=== PATIENT | female | born 1960 | race Caucasian/White ===

== ENCOUNTER → 2017-10-13 13:35 | Outpatient (CLI) | payer OTHER, SELFPAY ==
[2017-10-13 15:03] LABS: Hematocrit 41.5 % (37-47); Hemoglobin 14.2 g/dl (12.0-15.0); Mean Corp Hgb Conc 34.2 g/gl (32-36); Mean Corpuscular Hgb 31.8 pg (27.0-32.0); Mean Platelet Vol. 9.8 fl (6.2-12.0); Platelet Count 266 K/mm3 (150-450); RBC Distribution Width CV 13.3 % (11.6-14.6); Red Blood Count 4.46 M/mm3 (4.2-5.4); White Blood Count 6.1 K/mm3 (4.4-11.0)
[2017-10-13 15:04] LABS: Scan Indicated on CBC? Y/N NO
[2017-10-13 15:08] LABS: Protein, Urine (Random) 12.8 mg/dL (<11.9); Protein:Creat Ratio 107 mg/g CRE (0-200)
[2017-10-13 15:10] LABS: Albumin, Serum 3.9 g/dL (3.2-5.0); BUN 18 mg/dL (7-18); BUN/Creat Ratio 12.2 RATIO (10-20); Calcium,Total 9.6 mg/dL (8.5-10.1); Chloride 105 mmol/L (98-107); Creatinine, Serum 1.47 mg/dL (0.55-1.02); EST Glomerular Filtration Rate 39 mL/min (>60); Est Glom Filt Rate - Afr Amer 47 mL/min (>60); Glucose 94 mg/dL (74-106); Phosphorus 3.2 mg/dL (2.5-4.9); Potassium 3.9 mmol/L (3.5-5.1); Sodium Level 141 mmol/L (136-145)
== END ==
PROVIDERS: Family Provider Family Medicine Geriatric Medicine; PCP Family Medicine Geriatric Medicine; Visit Provider Internal Medicine Nephrology
DX: N18.3 Chronic kidney disease, stage 3 (moderate) (principal)
CPT/HCPCS: 36415; 80069; 82570; 84156; 85027

== ENCOUNTER → 2018-06-01 11:53 | Outpatient (CLI) | payer OTHER, SELFPAY ==
[2018-06-01 10:43] VITALS: BMI 23.3
[2018-06-01 13:12] LABS: T4 Total, Thyroxin 11.7 ug/dL (4.8-13.9); Thyroid Stim Hormone (TSH) 1.11 uIU/mL (0.358-3.74)
--- OUTSIDE RECORDS SUMMARY | 2018-07-27 15:15 | XMS RPT_ITS ---
:1960 Author Organization [facility] Support Name Relationship Address Phone [employer] Unavailable [address] + [place] [address] ARTURO EWING Unavailable [address] + [place] [address] COUCH CRYST[employer] Unavailable [address] + [place] [address] [employer] Unavailable [address] + [place] [address] ARTURO EWING Unavailable [address] + [place] [address] [employer] CRYST[employer] Unavailable [address] + [place] [address] [employer] Unavailable [address] + [place] [address] ARTURO EWING Unavailable [address] + [place] [address] COUCH CRYSTAL Unavailable . + [place] [address] [employer] Unavailable [address] + [place] [address] ARTURO EWING Unavailable [address] + [place] [address] [employer] Unavailable [address] + [place] [address] ARTURO EWING Unavailable [address] + [place] [address] [employer] Unavailable [address] + [place] [address] ARTURO EWING Unavailable [address] [phone] [place] [address] [employer] Unavailable [address] + [place] [address] ARTURO EWING Unavailable [address] [phone] [place] [address] [employer] Unavailable [address] + [place] [address] ARTURO EWING Unavailable [address] [phone] [place] [address] Care Team Providers Name Role Phone Twyla Castañeda Attending Unavailable Warner, Tyler Chi Primary Care Unavailable Warner, Tyler Chi Attending Unavailable Warner, Tyler Chi Primary Care Unavailable Warner, Tyler Chi Attending Unavailable Warner, Tyler Chi Primary Care Unavailable Twyla Castañeda Attending Unavailable Warner, Tyler Chi Primary Care Unavailable Vincenzo, Pramod Attending Unavailable Vincenzo, [place] Referring Unavailable Warner, Tyler Chi Primary Care Unavailable Vincenzo, Pramod Consulting Unavailable Vincenzo, Pramod Attending Unavailable Warner, Tyler Chi Referring Unavailable Warner, Tyler Chi Primary Care Unavailable Vincenzo, [place] Attending Unavailable Vincenzo, [place] Attending Unavailable Vincenzo, [place] Referring Unavailable Warner, Tyler Chi Primary Care Unavailable Zackary Datinder B Admitting Unavailable Zackary, Datinder B Attending Unavailable Zackary, Datinder B Primary Care Unavailable PROBLEMS PROBLEMS DATE TYPE CONDITION / CODE ATTENDING STATUS SOURCE 06/15/2018 Unknown Z98.890 - Other Vincenzo, Pramod Active [place] specified Community postprocedural Hospital states / Repository Z98.890(ICD-10) 06/01/2018 Unknown E03.9 - Vinc[place], [place] Active [place] Hypothyroidism, Community unspecified / Hospital E03.9(ICD-10) Repository 10/13/2017 Unknown N18.3 - Chronic Twyla Castañeda Active [place] kidney disease, Community stage 3 (moderate) / Hospital N18.3(ICD-10) Repository PROCEDURES PROCEDURES No Procedure Records FoundRESULTS RESULTS ECHOCARDIOGRAM COMPLETE Observed: 06/15/2018 Status: F Source: [place] 5:46 PM [facility] REPOSITORY [facility] Cardiovascular Services [address] [place] [address] Echo Complete 06/15/18 1258 MR#: [id number] Acct: [id number] Name: RACHEL EWING Rep #: [id number] : 1960 58 From: Pramod Loya MD Attending Dr: Pramod Loya MD Status: REG CLI Ordering Dr: Pramod Loya MD Date: 06/15/18 Location: [facility] Sex: F C Admitted: Reason For Study: Mitral valve repair Procedure This was a 2D Doppler, Color Flow transthoracic echocardiogram. Exam performed in department. Left Ventricle Normal LV size. Mild concentric left ventricular hypertrophy. Left ventricular systolic function is lower limits of normal. The estimated ejection fraction is 50 %. Stage 1 diastolic dysfunction. Salmon : Hypokinetic. Right Ventricle Normal RV size. Normal systolic function. Atria Normal left atrium. Normal right atrium. Mitral Valve Mild-Moderate (1-2+) eccentric mitral valve insufficiency. An annuloplasty ring is noted in the mitral position. Status post mitral valve repair. Tricuspid Valve Normal tricuspid valve. Mild (1+) tricuspid valve insufficiency. Aortic Valve Trisinus/trileaflet aortic valve. Pulmonic Valve Normal pulmonic valve. Great Vessels Normal aortic root. The pulmonary artery is normal size. Normal inferior vena cava. Pericardium/Pleural No pericardial effusion. MMode/2D Measurements AND Calculations LVIDd: 4.4 cm IVSd: 1.4 cm Ao root diam: 2.9 cm LVIDs: 2.8 cm LVPWd: 1.2 cm RVDd: 3.2 cm FS: 35.1 % LAV(MOD-bp): 91.5 ml EDV(MOD-sp4): 86.9 ml EDV(MOD-sp2): 92.6 ml LAV(MOD-bp) Indexed: 52.7 ml/m2 ESV(MOD-sp4): 47.4 ml EF(MOD-sp2): 55.4 % LAV(MOD-sp2): 87.2 ml EF(MOD-sp4): 45.4 % LAV(MOD-sp4): 73.2 ml SV(MOD-sp4): 39.4 ml SV(MOD-sp2): 51.3 ml LA A4 area: 21.1 cm2 LA dimension(2D): 5.2 cm RA A4 area: 13.8 cm2 Doppler Measurements AND Calculations MV E max rodolfo: 98.2 cm/sec MV V2 max: 133.2 cm/sec MV P1/2t max rodolfo: 117.6 cm/sec MV A max rodolfo: 106.9 cm/sec MV max P.1 mmHg MV P1/2t: 89.3 msec MV E/A: 0.92 MV V2 mean: 95.7 cm/sec MV dec slope: 385.7 cm/sec2 MV mean P.9 mmHg MV V2 VTI: 31.2 cm MVA(P1/2t): 2.5 cm2 Ao V2 max: 121.2 cm/sec LV V1 max: 83.6 cm/sec PA V2 max: 67.0 cm/sec Ao max P.9 mmHg LV V1 max P.8 mmHg TR max rodolfo: 233.8 cm/sec TR max P.9 mmHg Interpretation Summary Status post mitral valve repair. Normal LV size. Left ventricular systolic function is lower limits of normal. The estimated ejection fraction is 50 %. Stage 1 diastolic dysfunction. Mild concentric left ventricular hypertrophy. Compared to prior study, there is no significant change. Ordering Physician: Pramod Loya Referring Physician: Tyler Hylton Chi Performed By: Mitzy Cramer RDCS 06/15/181745 Date Pramod Loya MD CC: Pramod Loya MD; Tyler Hylton MD Date Dictated: 06/15/18 1258 Date Transcribed: 06/15/181745 Public Speaker: Signed T4 TOTAL, THYROXIN Collected: 06/01/2018 Status: F Source: [place] 11:56 AM [facility] REPOSITORY TYPE CODE TESTS RESULT OUT OF RANGE REFERENCE UNITS LAB L501.9310 4.8-13.9 ug/dL T4 Normal THYROXIN 11.7 Performed By: #### L501.9310, L501.9520 #### [place] [facility] [address] [place], [address] THYROID STIM HORMONE Collected: 06/01/2018 Status: F Source: [place] (TSH) 11:56 AM [facility] REPOSITORY TYPE CODE TESTS RESULT OUT OF RANGE REFERENCE UNITS LAB L501.9520 0.358-3.74 uIU/mL Normal TSH 1.11 Performed By: #### L501.9310, L501.9520 #### [place] [facility] [address] [place], [address] CARDIOLOGY VISIT Observed: 06/01/2018 Status: F Source: [place] REPORT 11:13 AM [facility] REPOSITORY [facility] [address] [place] [address] OFFICE VISIT Date of Service: 06/01/18 MR#: [id number] Acct: [id number] Name: RACHEL EWING Rep #: [id number] : 1960 Provider: Pramod Loya MD Age/Sex: 58/F Location: [facility] Status: Signed HPI HPI Chief Complaint: Follow up Details: RACHEL EWING, is a 58 F who presents to the office today for a follow-up visit. She is a lady with a history of posterior mitral valve leaflet [id number] who underwent a quadrangular resection of the P2 segment and annuloplasty with placement of a 32 mm Minerva Barlow band. She has been doing quite well she denies any chest pain or shortness of breath or paroxysmal nocturnal dyspnea or pedal edema. She is concerned about the fact that her stamina is not back to where she thinks it needs to be. She has not had any dizziness or diaphoresis no near syncope or syncope. Her physical exam today demonstrates clear lung pritchett regular rate and rhythm and no pedal edema. 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 Is patient in pain?: No Allergies prednisone Adverse Reaction (Verified 06/01/18 10:43) Nausea/Vom/Diarrhea Medications Aspirin 81 mg PO DAILY 07/09/16 [History Confirmed 06/01/18] levothyroxine 88 mcg capsule 88 mcg PO DAILY 06/01/18 [History Confirmed 06/01/18] multivitamin capsule 1 cap PO DAILY 06/01/18 [History Confirmed 06/01/18] [facility] Medical History Hypothyroidism (Chronic) CHF (congestive heart failure) (Chronic) Mitral regurgitation due to cusp prolapse (Chronic) Atrial fibrillation (Chronic) Surgical History History of thoracentesis (Resolved) H/O mitral valve repair (Resolved) Hx of tonsillectomy (Resolved) S/P percutaneous endoscopic gastrostomy (PEG) tube placement (Resolved) Family History Father CVA (cerebral vascular accident) Social History Smoking Status: Never smoker ROS Const Const: Negative for fatigue, weakness, night sweats, excessive sweating, frequent falls, headache(s) or daytime sleepiness Eyes Eyes: Negative for loss of peripheral vision, transient loss of vision, blind spots, double vision or blurry vision ENT ENT: Negative for headache(s), dizziness, balance problems, Nosebleed/epistaxis, tongue swelling or lip swelling Cardio Chest Pain: No Palpitations: No Edema: None Muscle aches with walking: None Resp Respiratory: Negative for SOB at rest, SOB orthopnea\SOB lying down, Cough, paroxysmal nocturnal dyspnea or SOB with activity GI GI: Negative nausea, vomiting, heartburn, black,tarry stools or bright, red blood in stools : Negative for hematuria Musc Musc: Negative for balance problems, muscle aches/ myalgia, muscle weakness or joint pain Skin Skin: Negative non-healing lesions, unusual bruising or rash Neuro Neuro: Negative for weakness, frequent falls, headache(s), double vision, dizziness, lightheadedness, orthostatic symptoms, blurry vision or lack of coordination Azeem Hematologic/Lymphatic: Negative for easy bruising or easy bleeding Endo Endo: Negative for fatigue, excessive sweating, cold intolerance, heat intolerance, increased thirst/drinking or hair loss Psych Psych: Negative for anxiety or depression Allergy Allergy/Immunology: Negative for throat swelling, Negative for tongue swelling, Negative for hives, Negative for rash, Negative for lip swelling Cardiology Exam Const Appearance: cooperative, healthy appearing, well developed, well groomed and no acute distress Nutritional Appearance: well nourished and average body habitus Orientation: alert, awake and oriented x3 Head Head: normal to inspection, normocephalic and atraumatic Ears: hearing grossly normal bilaterally and external ears normal Nose: external nose normal, nasal mucous membranes and turbinates normal, nares normal, septum normal, no nasal discharge Face and Sinus: face symmetric Mouth: oral mucosae normal, tongue normal, oropharynx normal and moist mucous membranes Teeth and gingiva: dentition normal Throat: posterior oropharynx normal, tonsils normal and uvula midline Eyes General: appearance normal, both eyes and all related structures Eyelids: eyelids normal Conjunctivae: conjunctivae normal Pupils: PERRL, normal by confrontation and accommodation normal EOM: EOM intact bilaterally Neck Neck: normal visual inspection, trachea midline and no JVD JVD: +5 Carotids: normal carotid upstroke and bounding pulses Chest Chest inspection: normal inspection of the chest, symmetric chest movement and normal respiratory effort Auscultation: Bilateral: Clear to Auscultation Cardio Palpation: normal PMI Rate: regular rate Rhythm: regular rhythm Heart sounds: S1 normal, S2 normal and normal, physiologic split S2; negative rub, gallop or murmur GI GI: normal to inspection, soft, no hepatosplenomegaly and bowel sounds present Neuro General: alert, awake, oriented x3, no focal sensory deficit, gait normal and moves all extremities Skin Skin: no rashes or lesions noted Extremities Pulses: Normal: Right Femoral Pulse, Left Femoral Pulse, Right Dorsalis Pedis Pulse, Left Dorsalis Pedis Pulse, Right Posterior Tibial Pulse, Left Posterior Tibial Pulse, Right Radial Pulse, Left Radial Pulse Lower Extremity Edema: None: Bilateral Musculoskel Musculoskeletal: No joint tenderness Psych Psychological: normal affect Assessment AND Plan 1. H/O mitral valve repair Z98.890 05/24/16 MVR with quadrangle resection P2, annuloplasty #32 mm Minerva-Barlow band Plan She is status post mitral valve repair. I would commend that we obtain a repeat echocardiogram to reassess her left ventricular function. Depending on the findings further recommendations will be made. Clinically however I think that she is doing very well. Orders Orders: 2. Hypothyroidism E03.9 Plan She does have a history of hypothyroidism previously on supplementation I would recommend that we obtain a TSH as well as T4 to make sure that her dosage is appropriate. As you know she has complained of fatigue and I wonder whether this may be part of the reason. 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) Coding Level of Care Code Off vis,est,level 4 Diagnoses H/O mitral valve repair Z98.890 Hypothyroidism E03.9 Coding Level of Care Code Off vis,est,level 4 Diagnoses H/O mitral valve repair Z98.890 Hypothyroidism E03.9 06/01/18 1113 <Electronically signed by Pramod Loya MD> Date Pramod Loya MD Cosigner Signature: Date (if applicable) CC: Tyler Hylton MD CBC W/ AUTO DIFF Collected: 05/10/2018 Status: F Source: [facility] 10:19 AM [facility] REPOSITORY TYPE CODE TESTS RESULT OUT OF RANGE REFERENCE UNITS LAB 67418169(L 3.6-11.0 E3/mcL OINC) Normal WBC 4.9 LAB 10343238(L 3.90-5.40 E6/mcL OINC) Normal RBC 4.15 LAB 31485573(L 12.0-16.0 G/DL OINC) Normal Hgb 13.4 LAB 83638109(L 36.0-48.0 % OINC) Normal Hct 39.6 LAB 70892874(L 11.5-14.5 % OINC) Normal RDW 13.1 LAB 88719653(L 27.0-31.0 pg OINC) High MCH 32.4 LAB 01833746(L 33.0-37.0 G/DL OINC) Normal MCHC 33.9 LAB 47116562(L 78.0-100.0 fL OINC) Normal MCV 95.6 LAB 41732419(L 7.4-11.0 fL OINC) Normal MPV 8.5 LAB 86404106(L 130-400 E3/mcL OINC) Normal Platelet 228 Performed By: #### [id number] #### [place] [id number] AUTO DIFF Collected: 05/10/2018 Status: F Source: [facility] 10:19 AM [facility] REPOSITORY Order Comment: Order Added by Discern Expert. TYPE CODE TESTS RESULT OUT OF RANGE REFERENCE UNITS LAB 23175156(L 37.0-75.0 % OINC) Normal Neutro Auto 65.3 LAB 19990324(L 20.0-55.0 % OINC) Normal Lymph Auto 22.9 LAB 41352594(L 0.0-10.0 % OINC) Normal [place] Auto 7.5 LAB 74946999(L 0.0-11.0 % OINC) Normal Eos Auto 3.0 LAB 75831452(L 0.0-2.0 % OINC) Normal Basophil Auto 1.3 LAB 77407326(L 1.4-6.5 E3/mcL OINC) Normal Neutro 3.2 Absolute LAB 08776775(L 1.2-3.4 E3/mcL OINC) Low Lymph Absolute 1.1 LAB 78859432(L 0.0-0.7 E3/mcL OINC) Normal [place] Absolute 0.4 LAB 75905189(L 0.0-0.7 E3/mcL OINC) Normal Eos Absolute 0.1 LAB 97850201(L 0.0-0.2 E3/mcL OINC) Normal Basophil 0.1 Absolute Performed By: #### [id number] #### OCTAVIOJasmina JohansenAydenjackson [address] [place] [address] RENAL PANEL Collected: 05/10/2018 Status: F Source: [facility] 10:19 AM [facility] REPOSITORY TYPE CODE TESTS RESULT OUT OF RANGE REFERENCE UNITS LAB 36501544(L 10-20 mEq/L OINC) Low AGAP 8 LAB 06421296(L 3.4-5.0 gm/dL OINC) Albumin Normal Lvl 4.2 LAB 03422962(L 8.6-10.3 mg/dL OINC) Calcium Normal Lvl 9.7 LAB 79690053(L 21.0-32.0 mEq/L OINC) CO2 Normal 29.0 LAB 46341520(L 98-107 mEq/L OINC) Chloride Normal 103 LAB 5495183(LO 0.5-1.1 mg/dL INC) High Creatinine 1.3 LAB 63728436(L 70-99 mg/dL OINC) Glucose Normal Lvl 85 LAB 12403399(L 2.5-4.9 mg/dL OINC) Normal Phosphorus 3.3 LAB 90134383(L 6-23 mg/dL OINC) BUN Normal 23 LAB 24988981(L 136-145 mEq/L OINC) Sodium Normal Lvl 136 LAB 65962965(L 3.5-5.3 mEq/L OINC) Normal Potassium Lvl 4.3 LAB 44182505(L 5.4-30.0 ratio OINC) Normal BUN/Creat Ratio 17.7 Performed By: #### [id number] #### [place] [employer] [address] [place] [address] EGFR Collected: 05/10/2018 Status: F Source: [facility] 10:19 AM [facility] REPOSITORY Order Comment: Order added by Discern Expert. TYPE CODE TESTS RESULT OUT OF RANGE REFERENCE UNITS LAB 47647857(LO mL/min/1.73 INC) m2 Normal eGFR 43 LAB 85839196(LO mL/min/1.73 INC) m2 Normal eGFR AA 52 Performed By: #### [id number] #### [place] [employer] [address] [place] [address] U CREATININE Collected: 05/10/2018 Status: F Source: [facility] 10:19 AM [facility] REPOSITORY TYPE CODE TESTS RESULT OUT OF RANGE REFERENCE UNITS LAB 19247918(L 20-300 mg/dL OINC) U Normal Creatinine 46 Performed By: #### [id number] #### [place] [employer] [address] [place] [address] U PROTEIN Collected: 05/10/2018 Status: F Source: [facility] 10:19 AM [facility] REPOSITORY TYPE CODE TESTS RESULT OUT OF RANGE REFERENCE UNITS LAB 77409399(LO 1-14 mg/dL INC) Normal Ur Total <4 Protein Performed By: #### [id number] #### [place] [employer] [address] [place] [address] CBC-COMPLETE BLOOD CNT Collected: 10/13/2017 Status: F Source: [place] NO DIFF 1:38 PM [facility] REPOSITORY TYPE CODE TESTS RESULT OUT OF RANGE REFERENCE UNITS LAB L100.1000 4.4-11.0 K/mm3 Normal WBC 6.1 LAB L100.1200 4.2-5.4 M/mm3 Normal RBC 4.46 LAB L100.1300 12.0-15.0 g/dl Normal HGB 14.2 LAB L100.1400 37-47 % Normal HCT 41.5 LAB L100.1500 81-99 fL Normal MCV 93.0 LAB L100.1600 27.0-32.0 pg Normal MCH 31.8 LAB L100.1700 32-36 g/gl Normal MCHC 34.2 LAB L100.1810 11.6-14.6 % Normal RDW CV 13.3 LAB L100.1820 35.1-43.9 fl High RDW SD 44.0 LAB L100.1900 150-450 K/mm3 Normal PLT 266 LAB L100.2000 6.2-12.0 fl Normal MPV 9.8 Performed By: #### L100.0500 #### [facility] [address] [place], [place], [address] PROTEIN+CREATININE Collected: Status: F Source: [place] RUGGIEROURINE 10/13/2017 1:38 PM [facility] REPOSITORY TYPE CODE TESTS RESULT OUT OF RANGE REFERENCE UNITS LAB L501.1200 NO RANGE EST. mg/dL Normal UR CREAT 120.00 LAB L501.1930 <11.9 mg/dL High 12.8 PROTEIN,UR.R AN. LAB L501.1940 0-200 mg/g CRE Normal PROT:CRE 107 RATIO Performed By: #### L501.0900 #### [facility] [address] [place], [place], [address] RENAL PROFILE Collected: 10/13/2017 Status: F Source: [place] 1:38 PM [facility] REPOSITORY TYPE CODE TESTS RESULT OUT OF RANGE REFERENCE UNITS LAB L501.0100 74-106 mg/dL Normal GLU 94 Result Comment: Please note revised GLUCOSE reference range effective 2017. LAB L501.1000 7-18 mg/dL Normal BUN 18 LAB L501.1100 0.55-1.02 mg/dL High CREAT,SERUM 1.47 Result Comment: The validity of the calculated GFR AND GFRAA in patients over 70 years has not been determined. Clinical correlation is essential. LAB L501.1110 >60 mL/min Low EST GFR 39 Result Comment: Non- GFR Calc LAB L501.1115 >60 mL/min Low EST GFR - AA 47 Result Comment: GFR Calc LAB L501.1300 10-20 RATIO Normal BUN/CRE 12.2 LAB L501.1800 3.2-5.0 g/dL Normal ALB 3.9 LAB L501.2200 8.5-10.1 mg/dL CA Normal 9.6 LAB L501.2300 2.5-4.9 mg/dL Normal PHOS 3.2 LAB L501.5300 136-145 mmol/L NA Normal 141 LAB L501.5600 3.5-5.1 mmol/L K Normal 3.9 LAB L501.5900 98-107 mmol/L CL Normal 105 LAB L501.6100 21.0-32.0 mmol/L Normal CO2 29.0 Performed By: #### L500.3600 #### [facility] [address] [place], [place], [address] CBC W/DIFF, AUTOMATED Collected: 07/25/2017 Status: F Source: [place] 11:05 AM [facility] REPOSITORY TYPE CODE TESTS RESULT OUT OF RANGE REFERENCE UNITS LAB L100.1000 4.4-11.0 K/mm3 Normal WBC 5.5 LAB L100.1200 4.2-5.4 M/mm3 Normal RBC 4.53 LAB L100.1300 12.0-15.0 g/dl Normal HGB 13.8 LAB L100.1400 37-47 % Normal HCT 42.8 LAB L100.1500 81-99 fL Normal MCV 94.5 LAB L100.1600 27.0-32.0 pg Normal MCH 30.5 LAB L100.1700 32-36 g/gl Normal MCHC 32.2 LAB L100.1810 11.6-14.6 % Normal RDW CV 12.8 LAB L100.1820 35.1-43.9 fl High RDW SD 44.2 LAB L100.1900 150-450 K/mm3 Normal PLT 254 LAB L100.2000 6.2-12.0 fl Normal MPV 10.4 LAB L100.2100 47-70 % Normal NEUT% 63.4 LAB L100.2200 19-41 % Normal LY% 23.0 LAB L100.2300 0-10 % Normal MONO% 6.3 LAB L100.2400 0-5 % Normal EO% 4.9 LAB L100.2500 0-1 % High BASO% 2.2 LAB L100.2550 0.0-0.9 % Normal IM GRAN % 0.200 Result Comment: IG% - Immature Granulocytes (promyelocytes, myelocytes and metamyelocytes) > 1% indicates that a LEFT SHIFT is Present. LAB L100.2620 2.0-7.7 X10 3/uL Normal Absolute Neut 3.5 LAB L100.2720 0.83-4.51 X10 3/ul Normal Absolute Lymph 1.27 Performed By: #### L100.0100 #### [facility] [address] [place], [place], [address] VITAMIN D,25 HYDROXY Collected: 07/25/2017 Status: F Source: [place] 11:05 [facility] TYPE CODE TESTS RESULT OUT OF RANGE REFERENCE UNITS LAB L506.1000 ng/mL Normal Vitamin D 23.1 25-OH Result Comment: Vitamin D 25(OH) Status Range Deficiency <20 ng/mL (50nmol/L) Insuffciency 20 - 30 ng/mL (50 - 75 nmol/L) Sufficiency 30 - 100 ng/mL (75 - 250 nmol/L) Toxicity >100 ng/mL (>250 nmol/L) Performed By: #### L506.1000 #### [facility] [address] [place], [address] COMPREHENSIVE METABOLIC Collected: 07/25/2017 Status: F Source: [facility] 11:05 AM [facility] REPOSITORY TYPE CODE TESTS RESULT OUT OF RANGE REFERENCE UNITS LAB L501.0100 70-110 mg/dL Normal GLU 79 LAB L501.1000 7-18 mg/dL High BUN 19 LAB L501.1100 0.55-1.02 mg/dL High 1.36 CREAT,SERUM Result Comment: The validity of the calculated GFR AND GFRAA in patients over 70 years has not been determined. Clinical correlation is essential. LAB L501.1110 >60 mL/min Low EST GFR 42 Result Comment: Non- GFR Calc LAB L501.1115 >60 mL/min Low EST GFR - AA 51 Result Comment: GFR Calc LAB L501.1300 10-20 RATIO Normal BUN/CRE 14.0 LAB L501.1500 6.4-8.2 g/dL T Normal PROT 7.5 LAB L501.1800 3.4-5.0 g/dL Normal ALB 4.0 Result Comment: Please note revised Albumin AND Globulin reference range effective 2017. LAB L501.1950 2.2-4.2 g/dL Normal GLOB 3.5 LAB L501.2000 0.9-2.4 RATIO Normal A/G 1.1 LAB L501.2200 8.5-10.1 mg/dL Normal CA 9.2 LAB L501.4100 15-37 U/L Normal AST 23 LAB L501.4305 45-117 U/L Normal ALK P 76 LAB L501.4405 12-78 U/L Normal ALT 27 LAB L501.4600 0.20-1.00 mg/dL Normal T BILI 0.50 LAB L501.5300 136-145 mmol/L Normal NA 137 LAB L501.5600 3.5-5.1 mmol/L Normal K 4.6 LAB L501.5900 98-107 mmol/L Normal CL 101 LAB L501.6100 21.0-32.0 mmol/L Normal CO2 28.0 LAB L501.6200 5-15 Normal GAP 8 Performed By: #### L500.4050, L501.9520 #### [facility] [address] [place], [address] THYROID STIM HORMONE Collected: 07/25/2017 Status: F Source: [place] (TSH) 11:05 AM [facility] REPOSITORY TYPE CODE TESTS RESULT OUT OF RANGE REFERENCE UNITS LAB L501.9520 0.358-3.74 uIU/mL Low TSH 0.06 Performed By: #### L500.4050, L501.9520 #### [facility] [address] [place], [address] HEPATITIS C ANTIBODIES Collected: 07/25/2017 Status: F Source: [place] 11:05 AM [facility] REPOSITORY TYPE CODE TESTS RESULT OUT OF RANGE REFERENCE UNITS LAB L3100.0650 0.0-0.9 s/co ratio Normal HEP C AB 0.1 Result Comment: Negative: < 0.8 Indeterminate: 0.8 - 0.9 Positive: > 0.9 The CDC recommends that a positive HCV antibody result be followed up with a HCV Nucleic Acid Amplification test ([id number]). Performed at: [facility] [id number] [employer] Operator: Hipolito Breen PhD, Phone: [phone] Performed By: #### L3100.0625 #### [facility] (refer to report for specific site) refer to report for address and phone number ALLERGIES ALLERGIES DATE TYPE / CODE NAME / CODE REACTION SEVERITY SOURCE 06/01/2018 Drug prednisone/F Nausea/Vom/Diarr Unknown [facility] Allergy/4160 [id number](RX [facility] 05160(SNOMED NORM) Repository CT) ENCOUNTERS ENCOUNTERS ADMIT/DISCHARGE ACCOUNT NUMBER ADMITTING ENCOUNTER LOCATION SOURCE CLASS 06/15/2018 [id number] Ambulatory BMSBuilding: [place] BMS.CF.[facility] Repository 06/15/2018 [id number] [facility] ding:CVS Repository 06/13/2018 [id number] [facility] ding:LAB.FUT Repository URE 06/01/2018 [id number] Ambulatory [facility] ding:POLAB3 Repository 06/01/2018/06/01/20 [id number] Ambulatory BMSBuilding: Charla 18 BMS.[facility] Repository 05/10/2018/05/10/20 [id number] Zackary, Ambulatory [address] ding:[facility] Repository 05/10/2018 [id number] Ambulatory [address] [place] [address] Repository 10/13/2017 [id number] Ambulatory [facility] ding:POLAB3 Repository 09/05/2017 [id number] Ambulatory [facility] ding:LAB.FUT Repository URE 07/25/2017 [id number] Ambulatory [facility] ding:POLAB3 Repository PAYERS PAYERS ENCOUNTER GUARANTOR PAYER SUBSCRIBER SOURCE 06/15/2018 ARTURO E Primary RACHEL Singletaryoster [id number] TR Insurance:ANTHEMPolic GOUDYDOB: [place] [address], y Number: [id number] Mexico Behavioral Health Institute at [facility] [place] [address]Yas: [id number] Repository Date:4216-06-74EU [address] () [id number] [place] [address] 17964FV: 06/15/2018 Secondary RACHEL J [place] Insurance:[facility] P[facility]AGE GOUDYDOB: [facility] Number: [id number] Hospital [id number] Repository Date:2018-06-01 06/15/2018 Tertiary NOT GIVENUNK [place] Insurance:SELF PAY [facility] Number: Effective Repository Date:2018-06-15 06/15/2018 ARTURO E Primary RACHEL Obrien Charla [id number] [address] Insurance:ANTHEMPolic GOUDYDOB: [place] [address], y Number: [id number] Mexico Behavioral Health Institute at Las Vegas [address]Lcy: [id number] Repository Date:7469-74-47GG [address] () [address], [place] [address]VJ: 06/15/2018 Secondary RACHEL J [place] Insurance:[facility] PACKAGE GOUDYDOB: [facility] Number: [id number] Hospital [id number] Repository Date:2018-06-01 06/15/2018 Tertiary NOT GIVENUNK [place] Insurance:SELF PAY [facility] Number: Effective Repository Date:2018-06-01 06/13/2018 ARTURO E Primary RACHEL Camille Charla [id number] [address] Insurance:ANTHEM GOUDYDOB: [place] [address], EXCHANGE PLANPoly [id number] Mexico Behavioral Health Institute at Las Vegas [address]Xpn: Number: Repository [id number] (HP) Date:5812-38-73BA [address]REDTMY, [place] [address]IY: 06/13/2018 Secondary NOT GIVENUNK [place] Insurance:SELF PAY [facility] Number: Effective Repository Date:2018-06-13 06/01/2018 Arturo E Primary RACHEL Singletaryoster [id number] [address] Insurance:ANTHEM GOUDYDOB: [facility] [id number] Mexico Behavioral Health Institute at Las Vegas [address]Tnv: Number: Repository [id number] (HP) Date:4814-88-13[address], [place] [address]YY: 06/01/2018 Secondary NOT GIVENUNK [place] Insurance:SELF PAY [facility] Number: Effective Repository Date:2018-06-01 06/01/2018 Arturo E Primary RACHEL Obrien Charla [id number] [address] Insurance:ANTHEM GOUDYDOB: [facility] [id number] Mexico Behavioral Health Institute at Las [place] [address]Qga: Number: Repository [id number] (HP) Date:6316-17-89VD [address] [place] [address]LJ: 06/01/2018 Secondary NOT GIVENUNK [place] Insurance:SELF PAY [facility] Number: Effective Repository Date:2017-06-14 05/10/2018 RACHEL J Primary RACHEL J [employer] GOUDYDOB: Insurance:ANTHEMPolic GOUDYDOB: [facility] [id number] y Number: Effective [id number] Date:2018-05-[address] [facility] [address] Repository [facility], [id number], [place] Name:Ethan PugaSAC-OSAGE H[facility] [address]Bld: [id number], [place] [address]Xdu: 02[address]KR: (800) (HP) [phone] (HP) () 05/10/2018 RACHEL MIDDLETONYDOB: Primary RACHEL NOLANUDYDOB: [place] [id number] Insurance:[facility] [id number] [place] [address] y Number: [facility] Repository [address], [id number] [address], [place] [id number]: Date:Plan Name:Health [place] [id number]: () (HP) 10/13/2017 Arturo E Primary RACHEL Dunham [id number] Insurance:ANTHEM GOUDYDOB: [facility], [facility] [id number] Mexico Behavioral Health Institute at Las [facility] [address]Pps: Number: Repository [id number] () Date:8605-82-51US [id number] [place] [address]VY: 10/13/2017 Secondary NOT GIVENUNK Charla Insurance:SELF PAY [facility] Number: Effective Repository Date:2017-10-13 09/05/2017 Arturo E Primary RACHEL Dunham [id number] Insurance:ANTHDARLYN GOUDYDOB: Community [place], [facility] [id number] Mexico Behavioral Health Institute at Las Vegas [address]Eie: Number: Repository [id number] () Date:5555-64-62NA [address]SCATJ[address] [place] [address]PD: 09/05/2017 Secondary NOT GIVENUNK Charla Insurance:SELF PAY [facility] Number: Effective Repository Date:2017-07-29 07/25/2017 Arturo E Primary RACHEL Dunham [id number] Insurance:ANTHDARLYN GOUDYDOB: Community [facility] [id number] Mexico Behavioral Health Institute at Las Vegas [address]Fto: Number: Repository [id number] () Date:7196-02-05YQ [address]NFLGGUA, [place] [address]DD: 07/25/2017 Secondary NOT GIVENUNK [place] Insurance:SELF PAY [facility] Number: Effective Repository Date:2017-07-25
== END ==
PROVIDERS: Family Provider Family Medicine Geriatric Medicine; PCP Family Medicine Geriatric Medicine; Visit Provider Internal Medicine Cardiovascular Disease
DX: E03.9 Hypothyroidism, unspecified (principal)
CPT/HCPCS: 36415; 84436; 84443

== ENCOUNTER → 2018-06-15 12:41 | Outpatient (CLI) | payer BC, SELFPAY ==
[2018-06-01 10:43] VITALS: BMI 23.3
--- NOTE | 2018-06-15 12:50 | ECHOD_ITS ---
Reason For Study: Mitral valve repair Procedure This was a 2D Doppler, Color Flow transthoracic echocardiogram. Exam performed in department. Left Ventricle Normal LV size. Mild concentric left ventricular hypertrophy. Left ventricular systolic function is lower limits of normal. The estimated ejection fraction is 50 %. Stage 1 diastolic dysfunction. [place] : Hypokinetic. Right Ventricle Normal RV size. Normal systolic function. Atria Normal left atrium. Normal right atrium. Mitral Valve Mild-Moderate (1-2+) eccentric mitral valve insufficiency. An annuloplasty ring is noted in the mitral position. Status post mitral valve repair. Tricuspid Valve Normal tricuspid valve. Mild (1+) tricuspid valve insufficiency. Aortic Valve Trisinus/trileaflet aortic valve. Pulmonic Valve Normal pulmonic valve. Great Vessels Normal aortic root. The pulmonary artery is normal size. Normal inferior vena cava. Pericardium/Pleural No pericardial effusion. MMode/2D Measurements & Calculations LVIDd: 4.4 cm IVSd: 1.4 cm Ao root diam: 2.9 cm LVIDs: 2.8 cm LVPWd: 1.2 cm RVDd: 3.2 cm FS: 35.1 % LAV(MOD-bp): 91.5 ml EDV(MOD-sp4): 86.9 ml EDV(MOD-sp2): 92.6 ml LAV(MOD-bp) Indexed: 52.7 ml/m2 ESV(MOD-sp4): 47.4 ml EF(MOD-sp2): 55.4 % LAV(MOD-sp2): 87.2 ml EF(MOD-sp4): 45.4 % LAV(MOD-sp4): 73.2 ml SV(MOD-sp4): 39.4 ml SV(MOD-sp2): 51.3 ml LA A4 area: 21.1 cm2 LA dimension(2D): 5.2 cm RA A4 area: 13.8 cm2 Doppler Measurements & Calculations MV E max rodolfo: 98.2 cm/sec MV V2 max: 133.2 cm/sec MV P1/2t max rodolfo: 117.6 cm/sec MV A max rodolfo: 106.9 cm/sec MV max P.1 mmHg MV P1/2t: 89.3 msec MV E/A: 0.92 MV V2 mean: 95.7 cm/sec MV dec slope: 385.7 cm/sec2 MV mean P.9 mmHg MV V2 VTI: 31.2 cm MVA(P1/2t): 2.5 cm2 Ao V2 max: 121.2 cm/sec LV V1 max: 83.6 cm/sec PA V2 max: 67.0 cm/sec Ao max P.9 mmHg LV V1 max P.8 mmHg TR max rodolfo: 233.8 cm/sec TR max P.9 mmHg Interpretation Summary Status post mitral valve repair. Normal LV size. Left ventricular systolic function is lower limits of normal. The estimated ejection fraction is 50 %. Stage 1 diastolic dysfunction. Mild concentric left ventricular hypertrophy. Compared to prior study, there is no significant change. Ordering Physician: Pramod Loya Referring Physician: Tyler Hylton Chi Performed By: Mitzy Cramer RDCS
--- OUTSIDE RECORDS SUMMARY | 2018-08-01 08:16 | XMS RPT_ITS ---
:1960 Author Organization [facility] Support Name Relationship Address Phone [employer] Unavailable [address] + [place] [address] ARTURO EWING Unavailable [address] + [place] [address] [employer] Unavailable [address] + [place] [address] [employer] Unavailable [address] + [place] [address] ARTURO EWING Unavailable [address] + [place] [address] [employer] Unavailable [address] + [place] [address] [employer] Unavailable [address] + [place] [address] ARTURO EWING Unavailable [address] + [place] [address] [employer]YST[employer] Unavailable . + [place] [address] [employer] Unavailable [address] + [place] [address] ARTURO EWING Unavailable [address] + [place] [address] [employer] Unavailable [address] + [place] [address] ARTURO EWING Unavailable [address] + [place] [address] [employer] Unavailable [address] + [place] [address] ARTURO EWING Unavailable [address] [phone] [place] [address] [place] [employer] Unavailable [address] [facility] + [place] [address] ARTURO EWING Unavailable [address] [facility] 451 [phone] [place] [address] Care Team Providers Name Role Phone Twyla Castañeda Attending Unavailable Warner, Tyler Chi Primary Care Unavailable Warner, Tyler Chi Attending Unavailable Warner, Tyler Chi Primary Care Unavailable Twyla Castañeda Attending Unavailable Warner, Tyler Chi Primary Care Unavailable Vincenzo, Pramod Attending Unavailable Warner, Tyler Chi Referring Unavailable Vincenzo, Pramod Attending Unavailable Vincenzo, Pramod Referring Unavailable Warner, Tyler Chi Primary Care Unavailable Vincenzo, Pramod Consulting Unavailable Warner, Tyler Chi Primary Care Unavailable Vincenzo, Pramod Attending Unavailable Vincenzo, Salis[place] Attending Unavailable Vincenzo, Pramod Referring Unavailable Warner, Tyler Chi Primary Care Unavailable Zackary, Datinder B Admitting Unavailable Zackary, Datinder B Attending Unavailable Zackary, Datinder B Primary Care Unavailable PROBLEMS PROBLEMS DATE TYPE CONDITION / CODE ATTENDING STATUS SOURCE 06/15/2018 Unknown Z98.890 - Other Vincenzo, [place] Active [facility] specified Community postprocedural Hospital states / Repository Z98.890(ICD-10) 06/01/2018 Unknown E03.9 - Vincenzo, Pramod Active Charla Hypothyroidism, Community unspecified / Hospital E03.9(ICD-10) Repository 10/13/2017 Unknown N18.3 - Chronic Twyla Castañeda Active [facility] kidney disease, [facility] stage 3 (moderate) / Hospital N18.3(ICD-10) Repository PROCEDURES PROCEDURES No Procedure Records FoundRESULTS RESULTS ECHOCARDIOGRAM COMPLETE Observed: 06/15/2018 Status: F Source: CHARLA 5:46 PM [facility] REPOSITORY [facility] Cardiovascular Services [address] [place] [address] Echo Complete 06/15/18 1258 MR#: [id number] Acct: [id number] Name: RACHEL EWING Rep #: [id number] : 1960 58 From: Pramod Loya MD Attending Dr: Pramod Loya MD Status: REG CLI Ordering Dr: Pramod Loya MD Date: 06/15/18 Location: [facility] Sex: F C Admitted: Reason For Study: Mitral valve repair Procedure This was a 2D Doppler, Color Flow transthoracic echocardiogram. Exam performed in department. Left Ventricle Normal LV size. Mild concentric left ventricular hypertrophy. Left ventricular systolic function is lower limits of normal. The estimated ejection fraction is 50 %. Stage 1 diastolic dysfunction. [place] : Hypokinetic. Right Ventricle Normal RV size. [...] Loya MD; Tyler Hylton MD Date Dictated: 06/15/181257 Date Transcribed: 06/15/181745 Telemetry Monitor: Signed T4 TOTAL, THYROXIN Collected: 06/01/2018 Status: F Source: [place] 11:56 AM [facility] [place] TYPE CODE TESTS RESULT OUT OF RANGE REFERENCE UNITS LAB L501.9310 4.8-13.9 ug/dL T4 Normal THYROXIN 11.7 Performed By: #### L5Maranda.9310, L501.20 #### [facility] [address] [place], [place], [address] THYROID STIM HORMONE Collected: 06/01/2018 Status: F Source: CHARLA (TSH) 11:56 AM [facility] [place]POS[facility] TYPE CODE TESTS RESULT OUT OF RANGE REFERENCE UNITS LAB L501.9520 0.358-3.74 uIU/mL Normal TSH 1.11 Performed By: #### L501.9310, L501.20 #### [facility] [address] [place], [address] CARDIOLOGY VISIT Observed: 06/01/2018 Status: F Source: CHARLA REPORT 11:13 AM [facility] [place] [facility] [address] [place] [address] OFFICE VISIT Date of Service: 06/01/18 MR#: [id number] Acct: [id number] Name: RACHEL EWING Rep #: [id number] : 1960 Provider: Pramod Loya MD Age/Sex: 58/F Location: [facility] Status: Signed HPI HPI Chief Complaint: Follow up Details: RACHEL EWING, is a 58 F who presents to the office today for a follow-up visit. 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 Is patient in pain?: No Allergies prednisone Adverse Reaction (Verified 06/01/18 10:43) Nausea/Vom/Diarrhea Medications Aspirin 81 mg PO DAILY 07/09/16 [History Confirmed 06/01/18] levothyroxine 88 mcg capsule 88 mcg PO DAILY 06/01/18 [History Confirmed 06/01/18] multivitamin capsule 1 cap PO DAILY 06/01/18 [History Confirmed 06/01/18] [facility] Medical History Hypothyroidism (Chronic) CHF (congestive [...] Orders: Plan Detail 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 REPOSITORY TYPE CODE TESTS RESULT OUT OF RANGE REFERENCE UNITS LAB 52820320(L 3.6-11.0 E3/mcL OINC) Normal WBC 4.9 LAB 45934794(L 3.90-5.40 E6/mcL OINC) Normal RBC 4.15 LAB 16565626(L 12.0-16.0 G/DL OINC) Normal Hgb 13.4 LAB 64540444(L 36.0-48.0 % OINC) Normal Hct 39.6 LAB 36509722(L 11.5-14.5 % OINC) Normal RDW 13.1 LAB 86738320(L 27.0-31.0 pg OINC) High MCH 32.4 LAB 83607099(L 33.0-37.0 G/DL OINC) Normal MCHC 33.9 LAB 31631107(L 78.0-100.0 fL OINC) Normal MCV 95.6 LAB 93795248(L 7.4-11.0 fL OINC) Normal MPV 8.5 LAB 68530814(L 130-400 E3/mcL OINC) Normal Platelet 228 Performed By: #### [id number] #### OCTAVIO Guerra [address] [place] [address] AUTO DIFF Collected: 05/10/2018 Status: F Source: [facility] 10:[address] [facility] REPOSITORY Order Comment: Order Added by Discern Expert. TYPE CODE TESTS RESULT OUT OF RANGE REFERENCE UNITS LAB 04529448(L 37.0-75.0 % OINC) Normal Neutro Auto 65.3 LAB 58654478(L 20.0-55.0 % OINC) Normal Lymph Auto 22.9 LAB 59473868(L 0.0-10.0 % OINC) Normal [place] Auto 7.5 LAB 50594056(L 0.0-11.0 % OINC) Normal Eos Auto 3.0 LAB 78508244(L 0.0-2.0 % OINC) Normal Basophil Auto 1.3 LAB 27892816(L 1.4-6.5 E3/mcL OINC) Normal Neutro 3.2 Absolute LAB 16557091(L 1.2-3.4 E3/mcL OINC) Low Lymph Absolute 1.1 LAB 05711069(L 0.0-0.7 E3/mcL OINC) Normal [place] Absolute 0.4 LAB 56479017(L 0.0-0.7 E3/mcL OINC) Normal Eos Absolute 0.1 LAB 74409977(L 0.0-0.2 E3/mcL OINC) Normal Basophil 0.1 Absolute Performed By: #### [id number] #### OCTAVIO Guerra [address] [place] [address] RENAL PANEL Collected: 05/10/2018 Status: F Source: [facility] 10:[address] [facility] REPOSITORY TYPE CODE TESTS RESULT OUT OF RANGE REFERENCE UNITS LAB 51432758(L 10-20 mEq/L OINC) Low AGAP 8 LAB 23548269(L 3.4-5.0 gm/dL OINC) Albumin Normal Lvl 4.2 LAB 47296132(L 8.6-10.3 mg/dL OINC) Calcium Normal Lvl 9.7 LAB 17247936(L 21.0-32.0 mEq/L OINC) CO2 Normal 29.0 LAB 11354669(L 98-107 mEq/L OINC) Chloride Normal 103 LAB 3328107(LO 0.5-1.1 mg/dL INC) High Creatinine 1.3 LAB 37597649(L 70-99 mg/dL OINC) Glucose Normal Lvl 85 LAB 10441351(L 2.5-4.9 mg/dL OINC) Normal Phosphorus 3.3 LAB 80267766(L 6-23 mg/dL OINC) BUN Normal 23 LAB 19717831(L 136-145 mEq/L OINC) Sodium Normal Lvl 136 LAB 74462100(L 3.5-5.3 mEq/L OINC) Normal Potassium Lvl 4.3 LAB 07698075(L 5.4-30.0 ratio OINC) Normal BUN/Creat Ratio 17.7 Performed By: #### 90595866 #### OCTAVIO [employer] [address] [place] [address] EGFR Collected: 05/10/2018 Status: F Source: [facility] 10:[address] [facility] REPOSITORY Order Comment: Order added by Discern Expert. TYPE CODE TESTS RESULT OUT OF RANGE REFERENCE UNITS LAB 59574164(LO mL/min/1.73 INC) m2 Normal eGFR 43 LAB 95187599(LO mL/min/1.73 INC) m2 Normal eGFR AA 52 Performed By: #### 70537863 #### OCTAVIO [employer] [address] [place] [address] U CREATININE Collected: 05/10/2018 Status: F Source: [facility] 10:[address] [facility] REPOSITORY TYPE CODE TESTS RESULT OUT OF RANGE REFERENCE UNITS LAB 78539236(L 20-300 mg/dL OINC) U Normal Creatinine 46 Performed By: #### 0659429 #### OCTAVIO [employer] [address] [place] [address] U PROTEIN Collected: 05/10/2018 Status: F Source: [facility] 10:[address] [facility] REPOSITORY TYPE CODE TESTS RESULT OUT OF RANGE REFERENCE UNITS LAB 23860558(LO 1-14 mg/dL INC) Normal Ur Total <4 Protein Performed By: #### 7856432 #### OCTAVIO [employer] [address] [place] [address] CBC-COMPLETE BLOOD CNT Collected: 10/13/2017 Status: F Source: CHARLA NO DIFF 1:38 PM [facility] [place] TYPE CODE TESTS RESULT OUT OF [...] MPV 9.8 Performed By: #### L100.0500 #### [facility] [address] [place], [address] PROTEIN+CREATININE Collected: Status: F Source: [facility] 10/13/2017 1:38 PM [facility] TYPE CODE TESTS RESULT OUT OF RANGE REFERENCE UNITS LAB L501.1200 NO RANGE EST. mg/dL Normal UR CREAT 120.00 LAB L501.1930 <11.9 mg/dL High 12.8 PROTEIN,UR.R AN. LAB L501.1940 0-200 mg/g CRE Normal PROT:CRE 107 RATIO Performed By: #### L501.0900 #### [facility] [address] [place], [place], [address] RENAL PROFILE Collected: 10/13/2017 Status: F Source: [place] 1:38 PM [facility] TYPE CODE TESTS RESULT OUT OF [...] CO2 29.0 Performed By: #### L500.3600 #### [facility] [address] [place], [address] ALLERGIES ALLERGIES DATE TYPE / CODE NAME / CODE REACTION SEVERITY SOURCE 06/01/2018 Drug prednisone/F Nausea/Vom/Diarr Unknown [facility] Allergy/4160 [id number]([facility] [address](SNOMED NORM) Repository CT) ENCOUNTERS ENCOUNTERS ADMIT/DISCHARGE ACCOUNT NUMBER ADMITTING ENCOUNTER LOCATION SOURCE CLASS 06/15/2018 [id number] Ambulatory BMSBuilding: [place]la BMS.CF.[facility] Repository 06/15/2018 [id number] Ambulatory [facility] ding:[facility] Repository 06/13/2018 [id number] Ambulatory [facility] ding:LAB.FUT Repository URE 06/01/2018 [id number] Ambulatory [facility] ding:POLAB3 Repository 06/01/2018/06/01/20 [id number] Ambulatory BMSBuilding: Charla 18 BMS.[facility] Repository 05/10/2018/05/10/20 [id number] Zackary, Ambulatory [address] ding:[facility] Repository 05/10/[id number] Repository 10/13/2017 [id number] Ambulatory [facility] ding:POLAB3 Repository 09/05/2017 [id number] Ambulatory [facility]t Gantt [facility] ding:LAB.FUT Repository URE PAYERS PAYERS ENCOUNTER GUARANTOR PAYER SUBSCRIBER SOURCE 06/15/2018 ARTURO Casas Primary RACHEL Singletaryoster [id number] [address] Insurance:ANTHEMPolic GOUDYDOB: Community [address], y Number: [id number] [facility] [facility] [address]Xka: [id number] Repository Date:7222-80-20MX BOX () [address] [place] [address] 900[address]UB: 06/15/2018 Secondary RACHEL J Charla Insurance:[facility] PACKAGE GOUDYDOB: [facility] Number: [id number] Hospital [id number] Repository Date:2018-06-01 06/15/2018 Tertiary NOT GIVENUNK Charla Insurance:SELF PAY [facility] Number: Effective Repository Date:2018-06-15 06/15/2018 ARTURO Casas Primary RACHEL Singletaryoster [id number] [address] Insurance:ANTHEMPolic GOUDYDOB: Community [address], y Number: [id number] St. [facility] [address]Wdz: [id number] Repository Date:0874-93-70FE [address] () [id number] [place] [address]TN: 06/15/2018 Secondary RACHEL J Gantt Insurance:[facility] PACKAGE GOUDYDOB: [facility] Number: [id number] Hospital [id number] Repository Date:2018-06-01 06/15/2018 Tertiary NOT GIVENUNK Charla Insurance:SELF PAY [facility] Number: Effective Repository Date:2018-06-01 06/13/2018 ARTURO E Primary RACHEL Camille SingletaryCharla [id number] [address] Insurance:ANTHEM GOUDYDOB: Community [address], EXCHANGE PLANPolicy [id number] [place] [address]Zbo: Number: Repository [id number] () Date:5516-05-38LP [address] [place] [address]XX: 06/13/2018 Secondary NOT GIVENUNK Gantt Insurance:SELF PAY [facility] Number: Effective Repository Date:2018-06-13 06/01/2018 Arturo Casas Primary RACHEL Dunham [id number] Insurance:ANTHEM GOUDYDOB: Community [facility] [id number] St. [facility] [address]Edu: Number: Repository [id number] (HP) Date:4458-00-08AY [address]OR[place], [place] [address]LA: 06/01/2018 Secondary NOT GIVENUNK Charla Insurance:SELF PAY [facility] Number: Effective Repository Date:2018-06-01 06/01/2018 Arturo E Primary RACHEL Singletaryoster [id number] [address] Insurance:ANTHEM GOUDYDOB: [place] [address] [id number] St[facility] [address]Ewp: Number: Repository [id number] (HP) Date:2662-39-45WS [address] [address]BQ: 06/01/2018 Secondary NOT GIVENUNK Gantt Insurance:SELF PAY [facility] Number: Effective Repository Date:2017-06-14 05/10/2018 RACHEL Obrien Primary RACHEL J Bahai GOUDYDOB: Insurance:ANTHEMPolic GOUDYDOB: [facility] [id number] y Number: Effective [id number] Date:2018-05-[address] Repository [facility]LO[facility], [id number], [place] Name:Ethan PugaUNIVERSITY HEALTH [facility]KE[facility] [address]Ptp: [id number], [place] [address]Nca: [address]HH: (800) (HP) [phone] (HP) (WP) 05/10/2018 RACHEL SOLISOB: Primary RACHEL SOLISOB: [place] [id number] Insurance:[facility] [id number] [facility] y Number: 6 [facility] Repository [address], [id number] [address], [place] [id number]: Date:Plan Name:Health [place] [id number]: (HP) (HP) 10/13/2017 Arturo E Primary RACHEL Dunham [id number] Insurance:ELIN SOLISOB: Community [place], EXCHANGE [facility] [id number] St[facility] [address]Ler: Number: Repository [id number] (HP) Date:5860-46-30SF [address] [place] [address]SW: 10/13/2017 Secondary NOT GIVENUNK Charla Insurance:SELF PAY [facility] Number: Effective Repository Date:2017-10-13 09/05/2017 Arturo E Primary RACHEL Dunham [id number] Insurance:ELIN HERNANDEZ: [facility] [address], EXCHANGE [facility] [id number] St[facility] [address]Mti: Number: Repository [id number] (HP) Date:2812-18-51DZ [address]VDB[address] [place] [address]JW: 09/05/2017 Secondary NOT GIVENUNK Gantt Insurance:SELF PAY [facility] Number: Effective Repository Date:2017-07-29
== END ==
PROVIDERS: Family Provider Family Medicine Geriatric Medicine; PCP Family Medicine Geriatric Medicine; Referring Provider Internal Medicine Cardiovascular Disease; Visit Provider Internal Medicine Cardiovascular Disease
DX: Z98.890 Other specified postprocedural states (principal)
CPT/HCPCS: 93306

== ENCOUNTER → 2018-08-01 13:39 | Outpatient (CLI) | payer BC, SELFPAY ==
[2018-06-01 10:43] VITALS: BMI 23.3
[2018-08-01 14:38] LABS: Absolute Lymphocyte Count 1.22 X10^3/ul (0.83-4.51); Absolute Neutrophil Count 3.2 X10^3/uL (2.0-7.7); Basophil# 0.05 X10^3/uL; Eosinophil# 0.13 X10^3/uL; Eosinophils% 2.6 % (0-5); Hemoglobin 14.5 g/dl (12.0-15.0); Lymphocyte # 1.22 X10^3/ul (4.0); Lymphocyte % 24.8 % (19-41); Mean Corpuscular Hgb 31.3 pg (27.0-32.0); Mean Corpuscular Volume 94.8 fL (81-99); Mean Platelet Vol. 10.3 fl (6.2-12.0); Monocyte# 0.28 X10^3/uL; Monocyte% 5.7 % (0-10); Neutrophil # 3.22 X10^3/uL (2.7-7.7); Neutrophil % 65.7 % (47-70); Platelet Count 219 K/mm3 (150-450); Red Blood Count 4.64 M/mm3 (4.2-5.4); White Blood Count 4.9 K/mm3 (4.4-11.0)
[2018-08-01 14:39] LABS: POSITIVE COUNT NO; POSITIVE DIFFERENTIAL NO; POSITIVE MORPHOLOGY NO
[2018-08-01 14:57] LABS: Vitamin D,25 Hydroxy 24.6 ng/mL (29.95-100.01)
[2018-08-01 14:58] LABS: ALB/GLOB Ratio 1.1 RATIO (0.9-2.4); AST(SGOT) 26 U/L (15-37); Alanine Aminotransfer ALT/SGPT 33 U/L (13-56); Albumin, Serum 4.3 g/dL (3.2-5.0); Alkaline Phosphatase 74 U/L (45-117); Anion Gap 7 (5-15); BUN 19 mg/dL (7-18); BUN/Creat Ratio 13.6 RATIO (10-20); Calcium,Total 9.3 mg/dL (8.5-10.1); Chloride 106 mmol/L (98-107); EST Glomerular Filtration Rate 41 mL/min (>60); Est Glom Filt Rate - Afr Amer 49 mL/min (>60); Globulin 3.8 g/dL (2.2-4.2); Glucose 76 mg/dL (74-106); Potassium 4.3 mmol/L (3.5-5.1); Protein, Total 8.1 g/dL (6.4-8.2); Sodium Level 138 mmol/L (136-145); Thyroid Stim Hormone (TSH) 0.19 uIU/mL (0.358-3.74)
== END ==
PROVIDERS: Family Provider Family Medicine Geriatric Medicine; PCP Family Medicine Geriatric Medicine; Visit Provider Family Medicine Geriatric Medicine
DX: I10 Essential (primary) hypertension (principal); E55.9 Vitamin D deficiency, unspecified
CPT/HCPCS: 36415; 80053; 82306; 84443; 85025

== ENCOUNTER → 2018-08-28 12:24 | Outpatient (CLI) | payer BC, SELFPAY ==
[2018-06-01 10:43] VITALS: BMI 23.3
== END ==
PROVIDERS: Family Provider Family Medicine Geriatric Medicine; PCP Family Medicine Geriatric Medicine; Referring Provider Family Medicine Geriatric Medicine; Visit Provider Family Medicine Geriatric Medicine
DX: R68.83 Chills (without fever) (principal)
CPT/HCPCS: 87633

== ENCOUNTER → 2019-01-01 | Outpatient (CLI) | payer BC, SELFPAY ==
[2018-06-01 10:43] VITALS: BMI 23.3
== END | disposition home or self-care (01) ==
LOC: LABSPEC 11:51
PROVIDERS: Family Provider Family Medicine Geriatric Medicine; PCP Family Medicine Geriatric Medicine; Visit Provider Family Medicine Geriatric Medicine
DX: N39.0 Urinary tract infection, site not specified (principal)
CPT/HCPCS: 87086; 87088; 87186

== ENCOUNTER → 2019-08-03 | Outpatient (CLI) | payer SELFPAY ==
[2019-05-22 09:36] VITALS: BMI 23.3
--- NOTE | 2019-08-03 08:02 | US_ITS ---
STUDY: SUPERFICIAL ULTRASOUND - LEFT LATERAL CHEST. REASON FOR EXAM: Female, 59 years old. LT RIB CAGE LUMP TECHNIQUE: A superficial ultrasound was performed with real-time and static tse-scale imaging. COMPARISON: None. FINDINGS: The palpable abnormality corresponds to a 2.1 cm x 2.6 cm x 0.8 cm well-defined hypoechoic soft tissue density. A biopsy is recommended for further evaluation. US/Chest IMPRESSION: The palpable abnormality corresponds to a 2.1 cm x 2.6 cm x 0.7 well-defined hypoechoic solid nodule. A biopsy is recommended for further evaluation. Electronically Signed: August Lopez, at 14:40 EST , Service support ,
== END | disposition home or self-care (01) ==
LOC: US 07:50
PROVIDERS: PCP Family Medicine Geriatric Medicine; Referring Provider Family Medicine Geriatric Medicine; Visit Provider Family Medicine Geriatric Medicine
DX: R22.2 Localized swelling, mass and lump, trunk (principal)
CPT/HCPCS: 76604

== ENCOUNTER → 2019-10-29 | Outpatient (CLI) | payer BC, SELFPAY ==
[2019-05-22 09:36] VITALS: BMI 23.3
[2019-10-29 15:02] LABS: Absolute Lymphocyte Count 0.81 X10^3/uL (0.83-4.51); Absolute Neutrophil Count 3.7 X10^3/uL (2.0-7.7); Basophil# 0.07 X10^3/uL; Basophil% 1.3 % (0-1); Eosinophil# 0.18 X10^3/uL; Eosinophils% 3.4 % (0-5); Hematocrit 43.7 % (37-47); Hemoglobin 14.7 g/dL (12.0-15.0); Lymphocyte # 0.81 X10^3/ul (4.0); Lymphocyte % 15.3 % (19-41); Mean Corp Hgb Conc 33.6 g/dL (32-36); Mean Corpuscular Hgb 32.2 pg (27.0-32.0); Mean Corpuscular Volume 95.6 fL (81-99); Mean Platelet Vol. 8.9 fl (6.2-12.0); Monocyte# 0.54 X10^3/uL; Monocyte% 10.2 % (0-10); NRBC Flagged by Analyzer 0 % (0-5); Neutrophil # 3.68 X10^3/uL (2.7-7.7); Neutrophil % 69.6 % (47-70); Platelet Count 225 K/mm3 (150-450); RBC Distribution Width CV 12.7 % (11.6-14.6); RBC Distribution Width SD 44.2 fl (35.1-43.9); Red Blood Count 4.57 M/mm3 (4.2-5.4); White Blood Count 5.3 K/mm3 (4.4-11.0)
[2019-10-29 15:47] LABS: ALB/GLOB Ratio 1.2 RATIO (0.9-2.4); AST(SGOT) 26 U/L (15-37); Alanine Aminotransfer ALT/SGPT 35 U/L (13-56); Albumin, Serum 4.1 g/dL (3.2-5.0); Alkaline Phosphatase 74 U/L (45-117); Anion Gap 3 (5-15); BUN 14 mg/dL (7-18); BUN/Creat Ratio 9.9 RATIO (10-20); Calcium,Total 10.1 mg/dL (8.5-10.1); Chloride 105 mmol/L (98-107); Creatinine, Serum 1.41 mg/dL (0.55-1.02); EST Glomerular Filtration Rate 40 mL/min (>60); Est Glom Filt Rate - Afr Amer 49 mL/min (>60); Globulin 3.4 g/dL (2.2-4.2); Glucose 93 mg/dL (74-106); Potassium 3.9 mmol/L (3.5-5.1); Protein, Total 7.5 g/dL (6.4-8.2); Sodium Level 140 mmol/L (136-145); Thyroid Stim Hormone (TSH) 1.08 uIU/mL (0.358-3.74)
[2019-10-29 16:31] LABS: Vitamin D,25 Hydroxy 43.1 ng/mL
== END | disposition home or self-care (01) ==
LOC: LAB 14:30
PROVIDERS: PCP Family Medicine Geriatric Medicine; Referring Provider Family Medicine Geriatric Medicine; Visit Provider Family Medicine Geriatric Medicine
DX: E55.9 Vitamin D deficiency, unspecified (principal); I10 Essential (primary) hypertension
CPT/HCPCS: 36415; 80053; 82306; 84443; 85025

== ENCOUNTER → 2020-10-29 15:02 | Outpatient (CLI) | payer BC, SELFPAY ==
[2020-05-22 13:01] VITALS: BMI 23.5
[2020-10-29 16:37] LABS: Absolute Neutrophil Count 6.1 X10^3/uL (2.0-7.7); Basophil# 0.08 X10^3/uL; Eosinophil# 0.28 X10^3/uL; Eosinophils% 3.5 % (0-5); Hematocrit 41.2 % (37-47); Hemoglobin 13.2 g/dL (12.0-15.0); Lymphocyte % 12.5 % (19-41); Mean Corpuscular Hgb 30.8 pg (27.0-32.0); Mean Corpuscular Volume 96.3 fL (81-99); Mean Platelet Vol. 9.7 fl (6.2-12.0); Monocyte# 0.55 X10^3/uL; Monocyte% 6.9 % (0-10); NRBC Flagged by Analyzer 0 % (0-5); Neutrophil # 6.08 X10^3/uL (2.7-7.7); Neutrophil % 75.7 % (47-70); Platelet Count 266 K/mm3 (150-450); RBC Distribution Width CV 13.1 % (11.6-14.6); RBC Distribution Width SD 46.4 fl (35.1-43.9); Red Blood Count 4.28 M/mm3 (4.2-5.4)
[2020-10-29 16:54] LABS: ALB/GLOB Ratio 1.2 RATIO (0.9-2.4); AST(SGOT) 28 U/L (15-37); Alanine Aminotransfer ALT/SGPT 34 U/L (13-56); Albumin, Serum 3.8 g/dL (3.2-5.0); Alkaline Phosphatase 73 U/L (45-117); Anion Gap 5 (5-15); BUN 15 mg/dL (7-18); BUN/Creat Ratio 12.1 RATIO (10-20); Calcium,Total 9.2 mg/dL (8.5-10.1); Chloride 104 mmol/L (98-107); Creatinine, Serum 1.24 mg/dL (0.55-1.02); EST Glomerular Filtration Rate 47 mL/min (>60); Est Glom Filt Rate - Afr Amer 56 mL/min (>60); Globulin 3.2 g/dL (2.2-4.2); Glucose 90 mg/dL (74-106); Sodium Level 139 mmol/L (136-145); Thyroid Stim Hormone (TSH) 1.81 uIU/mL (0.358-3.74)
[2020-10-30 08:11] LABS: Vitamin D,25 Hydroxy 40.5 ng/mL
== END ==
PROVIDERS: PCP Family Medicine Geriatric Medicine; Visit Provider Family Medicine Geriatric Medicine
DX: E55.9 Vitamin D deficiency, unspecified (principal); I10 Essential (primary) hypertension
CPT/HCPCS: 80053; 82306; 84443; 85025

== ENCOUNTER → 2021-05-14 10:55 | Outpatient (CLI) | payer BC, SELFPAY ==
[2021-05-14 11:50] LABS: Absolute Lymphocyte Count 0.96 X10^3/uL (0.83-4.51); Basophil# 0.05 X10^3/uL; Basophil% 0.9 % (0-1); Eosinophil# 0.21 X10^3/uL; Eosinophils% 3.7 % (0-5); Hematocrit 42.2 % (37-47); Hemoglobin 13.9 g/dL (12.0-15.0); Lymphocyte # 0.96 X10^3/ul (0.83-4.51); Lymphocyte % 17.1 % (19-41); Mean Corp Hgb Conc 32.9 g/dL (32-36); Mean Corpuscular Hgb 31.2 pg (27.0-32.0); Mean Corpuscular Volume 94.8 fL (81-99); Mean Platelet Vol. 9.4 fl (6.2-12.0); Monocyte# 0.37 X10^3/uL; Monocyte% 6.6 % (0-10); NRBC Flagged by Analyzer 0 % (0-5); Neutrophil # 4.02 X10^3/uL (2.7-7.7); Neutrophil % 71.5 % (47-70); Platelet Count 273 K/mm3 (150-450); RBC Distribution Width CV 12.3 % (11.6-14.6); RBC Distribution Width SD 43.2 fl (35.1-43.9); Red Blood Count 4.45 M/mm3 (4.2-5.4); White Blood Count 5.6 K/mm3 (4.4-11.0)
[2021-05-14 12:16] LABS: Albumin, Serum 3.7 g/dL (3.2-5.0); BUN 25 mg/dL (7-18); BUN/Creat Ratio 19.7 RATIO (10-20); Calcium,Total 9.7 mg/dL (8.5-10.1); Chloride 103 mmol/L (98-107); Creatinine, Serum 1.27 mg/dL (0.55-1.02); EST Glomerular Filtration Rate 45 mL/min (>60); Est Glom Filt Rate - Afr Amer 55 mL/min (>60); Glucose 86 mg/dL (74-106); Phosphorus 3.3 mg/dL (2.5-4.9); Potassium 4.3 mmol/L (3.5-5.1); Sodium Level 138 mmol/L (136-145)
[2021-05-14 12:17] LABS: Protein, Urine (Random) 7.3 mg/dL (<11.9); Protein:Creat Ratio 108 mg/g CRE (0-200)
[2021-05-14 12:21] LABS: Vitamin D,25 Hydroxy 38.4 ng/mL
== END ==
PROVIDERS: PCP Family Medicine Geriatric Medicine
DX: N18.32 Chronic kidney disease, stage 3b (principal)
CPT/HCPCS: 36415; 80069; 82306; 82570; 83970; 84156; 85025

== ENCOUNTER → 2021-11-02 | Outpatient (CLI) | payer BC, SELFPAY ==
[2021-11-02 15:41] LABS: Absolute Lymphocyte Count 1.22 X10^3/uL (0.83-4.51); Absolute Neutrophil Count 5.5 X10^3/uL (2.0-7.7); Basophil# 0.07 X10^3/uL; Basophil% 0.9 % (0-1); Eosinophil# 0.24 X10^3/uL; Eosinophils% 3.2 % (0-5); Hematocrit 39.8 % (37-47); Hemoglobin 13.4 g/dL (12.0-15.0); Lymphocyte # 1.22 X10^3/ul (0.83-4.51); Lymphocyte % 16.5 % (19-41); Mean Corp Hgb Conc 33.7 g/dL (32-36); Mean Corpuscular Hgb 32.1 pg (27.0-32.0); Mean Corpuscular Volume 95.2 fL (81-99); Mean Platelet Vol. 9.8 fl (6.2-12.0); Monocyte# 0.38 X10^3/uL; Monocyte% 5.1 % (0-10); NRBC Flagged by Analyzer 0 % (0-5); Neutrophil # 5.46 X10^3/uL (2.7-7.7); Platelet Count 269 K/mm3 (150-450); RBC Distribution Width CV 12.9 % (11.6-14.6); Red Blood Count 4.18 M/mm3 (4.2-5.4); White Blood Count 7.4 K/mm3 (4.4-11.0)
[2021-11-02 16:00] LABS: ALB/GLOB Ratio 1.2 RATIO (0.9-2.4); AST(SGOT) 24 U/L (15-37); Alanine Aminotransfer ALT/SGPT 29 U/L (13-56); Albumin, Serum 3.7 g/dL (3.2-5.0); Alkaline Phosphatase 64 U/L (45-117); Anion Gap 5 (5-15); BUN 25 mg/dL (7-18); BUN/Creat Ratio 18.5 RATIO (10-20); Calcium,Total 8.7 mg/dL (8.5-10.1); Chloride 104 mmol/L (98-107); Creatinine, Serum 1.35 mg/dL (0.55-1.02); EST Glomerular Filtration Rate 42 mL/min (>60); Est Glom Filt Rate - Afr Amer 51 mL/min (>60); Globulin 3.2 g/dL (2.2-4.2); Glucose 141 mg/dL (74-106); Potassium 4.3 mmol/L (3.5-5.1); Protein, Total 6.9 g/dL (6.4-8.2); Sodium Level 138 mmol/L (136-145); Thyroid Stim Hormone (TSH) 3.82 uIU/mL (0.358-3.74)
== END | disposition home or self-care (01) ==
LOC: POLAB3 14:12
PROVIDERS: PCP Family Medicine Geriatric Medicine; Visit Provider Family Medicine Geriatric Medicine
DX: I10 Essential (primary) hypertension (principal); E55.9 Vitamin D deficiency, unspecified
CPT/HCPCS: 36415; 80053; 82306; 84443; 85025

== ENCOUNTER 2022-02-19 05:25 | Day surgery (SDC) | payer BC, SELFPAY ==
--- NOTE | 2022-02-19 | GASB_PTH ---
PATIENT: RACHEL EWING LOC: EN U#:[id number] AGE/SX: 61/F ROOM: RE02/19/[address]: Dr. Guillermo Butts MD : 1960 BED: DIS: 02/19/2022 SPEC #: [id number] RECD: 02/19/22 12:56 STATUS: EDNA REBelen #: [id number] BATSHEVA: 02/19/22 00:[address]: Guillermo Butts DEPT: SURGICAL PATHOLOGY RECD BY: Domenic Ragsdale ENTERED: 02/19/22 12:57 SP TYPE: Gastric Bx OTHR DR: Dr. Tyler Hylton MD Tissues: A - Gastric mucous membrane B - Esophageal mucous membrane Procedures: Special Stain Group II Surgery Specimen Level IV Alcian Blue/PAS (control) HEADER OPERATION: Colonoscopy, E[place] ([facility] [place] with biopsies PRE-OP DIAGNOSIS: Positive colorectal cancer screening TISSUE SUBMITTED: A - Antrum for H. pylori and path, B - Distal esophagus MICROSCOPIC DIAGNOSIS A. Gastric antrum, biopsy: Chronic gastritis. See comment. B. Distal esophagus, biopsy: Gastroesophageal junctional mucosa with mild chronic inflammation and focal acute inflammation. No evidence of goblet cell metaplasia. Focal changes of reflux. See comment. AM:rbionna 02/22/2022 COMMENT A. The results of immunohistochemistry for Helicobacter pylori will be reported separately ([id number]). B. Alcian blue/PAS stain with matched control supports the above diagnosis. MICROSCOPIC DESCRIPTION Slides are reviewed. GROSS DESCRIPTION A - Received in fixative is one container labeled with the patient's name and designated antrum biopsy. The specimen consists of one irregular fragment of light clements soft tissue that measures 0.3 x 0.3 x 0.1 cm. The specimen is totally submitted in one cassette. B - Received in fixative is one container labeled with the patient's name and designated distal esophagus biopsy. The specimen consists of multiple irregular fragments of light clements soft tissue that in aggregate measure 0.5 x 0.5 x 0.1 cm. The specimen is totally submitted in one cassette. / TROY:brionna 02/19/2022 TC:3 CPT: 66198 x2, 17844
--- NOTE | 2022-02-19 | IMM_PTH ---
PATIENT: RACHEL EWING LOC: EN U#:[id number] AGE/SX: 61/F ROOM: RE02/19/[address]: Dr. Guillermo Butts MD : 1960 BED: DIS: 02/19/2022 SPEC #: [id number] RECD: 02/19/22 13:08 STATUS: EDNA REBelen #: [id number] BATSHEVA: 02/19/22 00:[address]: Guillermo Butts DEPT: IMMUNOHISTOCHEMISTRY RECD BY: Abiola Chapin ENTERED: 02/19/22 13:08 SP TYPE: IMMUNO OTHR DR: Dr. Tyler Hylton MD Tissues: COLON BIOPSY Procedures: H Pylori (initial) PHYSICIAN & [place] [id number] SPECIMEN INFORMATION: Tissue Source: A. Antrum biopsy Clinical Info: Positive colorectal cancer screening Specimen Number: [id number] CPT code: 04358 METHODOLOGY: Deparaffinized sections of prefer/formalin-fixed tissue or PAP/DQ stained slides are incubated with monoclonal/polyclonal antibodies/oligonucleotide probes. Localization is made via biotin free immunoperoxidase method. Appropriate controls are performed and reacted as expected. Results on target cell population are indicated in the following table: RESULTS: ANTIBODY / CLONE RESULT Block A H Pylori (polyclonal) negative These tests were developed and their performance characteristics determined by [facility]. They may not have been cleared or approved by the U.S. Food and Drug Administration. The FDA has determined that such clearance or approval is not necessary. The above immunohistochemical/dualISH markers are ordered and reviewed by the Pathologist. INTERPRETATION: A. Gastric antrum, biopsy: Negative for Helicobacter pylori organisms. AM:brionna 02/23/2022
[2022-02-19 05:51] VITALS: BP 114/71; PULSE 87; RESP 18; TEMP 36.3; O2SAT 100; BMI 23.7
--- NOTE | 2022-02-19 05:55 | PCM.HP.BLA ---
History and Physical Date of Admission: 02/19/22 Visit Reasons:?+COLOGUARD/CSCOPE Chief Complaint: + cologuard Moss Gatherer Required: No Is patient in pain?: No Allergies prednisone Adverse Reaction (Verified 01/25/22 14:51) Nausea/Vom/Diarrhea Medications aspirin 81 mg chewable tablet 81 mg PO DAILY 07/09/16 [History Confirmed 01/25/22] multivitamin 1 cap PO DAILY 06/01/18 [History Confirmed 01/25/22] levothyroxine 75 mcg capsule 75 mcg PO DAILY 05/22/19 [History Confirmed 01/25/22] prenat.vits,paris,edi-fzkg-qrbhp 1 tab PO DAILY 05/14/21 [History Confirmed 01/25/22] amoxicillin 500 mg capsule 2,000 mg PO .COMPLEX 08/31/21 [History Confirmed 01/25/22] Is last menstrual period known: No Post menopausal: Yes Patient : No PFSH Medical History?(Updated 01/25/22 @ 15:[address] 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 H/O mitral valve repair (05/24/16) History of right and left heart catheterization History of thoracentesis (06/2016) History of tracheostomy Hx of tonsillectomy S/P percutaneous endoscopic gastrostomy (PEG) tube placement Tracheostomy in place (06/2016) Family History? Father CVA (cerebral vascular accident) Social History? Smoking Status:? Never smoker HPI HPI HPI: RACHEL EWING, is a 61 F who presents to the office today for surgical consultation regarding a positive Cologuard test.? That was obtained on June 01, 2021.? As of November 02, 2021 white blood cell count was 7.4 with a hemoglobin 13.4 hematocrit 39.8 platelet count 269,000.? BUN 25 and creatinine 1.35 with an estimated GFR of 42.? She is on low-dose aspirin therapy.? She is referred by Dr. Tyler Hylton and a written copy of my surgical consult recommendations will return to him.? She has had a history of a mitral valve repair May 24, 2016. She denies history of peptic ulcer disease.? She does take a low-dose aspirin.? She has not noticed any bright red blood per rectum or melena.? When she had the urgent emergent mitral valve repair she did have a cardiac arrest and had to have that done urgently but since that time she has had follow-up with Dr. Pramod Loya locally without apparent issue.? She is due for an echocardiogram May 2022. Family history is negative for colon cancer ROS General General: No weight change, appetite, fatigue, colon cancer, breast cancer or weakness HEENT HEENT: No difficulty swallowing, eye injury, eye surgery, swollen glands or hoarseness Endo Endocrine: Yes thyroid disease; No diabetes mellitus, thyroid cancer, Hair loss, heat intolerance or cold intolerance Skin Skin: Yes rash; No changing moles Additional Details: poison isabel right AC Breast Breast: No left breast lump, right breast lump, nipple discharge, breast pain, abnormal mammogram, abnormal US or breast enlargement Musc Musculoskeletal: No back problems, arthritis, rheumatoid arthritis, gout or joint pain Cardio Cardiovascular: Yes murmur; No pacemaker, heart disease, atrial fibrillation, high blood pressure, heart attack, heart stent, palpitations, shortness of breat with exertion or chest pain Psych Psychiatric: No depression, anxiety or hearing voices Resp Respiratory: No shortness of breath, No sleep apnea, No cough, No COPD, No asthma, No emphysema and No wheezing Gastro Gastrointestinal: No abdominal pain, No nausea or vomiting, No diarrhea, No constipation, No blood in stool, No acid reflux, No hemorrhoids, No ulcers, No gallbladder problem and No black,tarry stools Azeem Hematologic: No blood thinners, No blood disorders, No bleeding, No anemia and No blood clots Neuro Neurologic: No weakness Exam Const General: cooperative and healthy appearing [facility] Head: normal to inspection Eyes General: appearance normal, both eyes and all related structures Neck Neck: normal visual inspection Resp Effort & Inspection: normal respiratory effort Auscultation: clear to auscultation bilaterally Cardio Rate: regular rate Rhythm: regular rhythm GI Palpation: soft and no hepatosplenomegaly Auscultation: normal bowel sounds Musc Cervical Spine: normal cervical lordosis Skin Other: Right antecubital space small patch of poison isabel Neuro General: patient alert, patient awake and patient oriented x3 Extrem General: no calf tenderness Psych Appearance: grossly normal Assessment and Plan Assessment and Plan (1) Positive colorectal cancer screening using Cologuard test: ?Status:?Acute ?Plan: I recommended the patient a esophagogastroduodenoscopy with possible biopsy and colonoscopy with possible biopsy or polypectomy as indicated.? Cologuard test was positive.? She is not demonstrating anemia and is otherwise asymptomatic.? She is on low-dose aspirin and she has had history of urgent mitral valve repair. We will contact Dr. Pramod Loya as the patient is due for her next routine echocardiogram May 2022 I anticipate monitored anesthesia care.? The patient has had an opportunity to ask and have questions answered.? We will schedule and proceed at her discretion.? The patient states that I assisted her with colonoscopy and all went well so she was looking toward me to assist her as well. Copy: Dr. Tyler Hylton and Dr. Marquise Butts M.D., F.A.C.S. I have re-examined the patient. There are no clinical changes since date of exam. Guillermo Butts M.D., F.A.C.S.
[2022-02-19] MEDS: Lactated Ringers 1,000 ML 15 ML IV (06:01)
[2022-02-19 07:05] VITALS: BP 114/71; BP 91/58; PULSE 72; RESP 18; TEMP 36.6; O2SAT 99
--- NOTE | 2022-02-19 07:07 | OP.EGD_ITS ---
Patient Name: Bri Mancia Procedure Date: 02/19/2022 6:17 AM Date of : 1960 Age: 61 Procedure: Upper GI endoscopy Indications: Cologuard positive Providers: Guillermo Butts MD Medicines: See the Anesthesia note for documentation of the administered medications Complications: No immediate complications. Procedure: Pre-Anesthesia Assessment: - Prior to the procedure, a History and Physical was performed, and patient medications and allergies were reviewed. The patient's tolerance of previous anesthesia was also reviewed. The risks and benefits of the procedure and the sedation options and risks were discussed with the patient. All questions were answered, and informed consent was obtained. Prior Anticoagulants: The patient has taken no previous anticoagulant or antiplatelet agents. ASA Grade Assessment: II - A patient with mild systemic disease. After reviewing the risks and benefits, the patient was deemed in satisfactory condition to undergo the procedure. After obtaining informed consent, the endoscope was passed under direct vision. Throughout the procedure, the patient's blood pressure, pulse, and oxygen saturations were monitored continuously. The colonoscope was introduced through the mouth, and advanced to the second part of duodenum. The upper GI endoscopy was accomplished without difficulty. The patient tolerated the procedure well. Scope In: 6:33:25 AM Scope Out: 6:40:30 AM Total Procedure Duration Time 0 hours 7 minutes 5 seconds Findings: LA Grade A (one or more mucosal breaks less than 5 mm, not extending between tops of 2 mucosal folds) esophagitis with no bleeding was found 38 cm from the incisors. Biopsies were taken with a cold forceps for histology. A small hiatal hernia was present. The entire examined stomach was normal. Biopsies were taken with a cold forceps for histology. The examined duodenum was normal. Impression: - LA Grade A reflux esophagitis. Biopsied. Very mild - Small hiatal hernia. - Normal stomach. Biopsied. - Normal examined duodenum. Recommendation: - Await pathology results. - Repeat upper endoscopy. - Telephone my office for pathology results in 1 week. - Use Prilosec (omeprazole) 20 mg PO daily OTC as needed - Continue present medications. Procedure Code(s): --- Professional --- 25163, Esophagogastroduodenoscopy, flexible, transoral; with biopsy, single or multiple Diagnosis Code(s): --- Professional --- K21.0, Gastro-esophageal reflux disease with esophagitis K44.9, Diaphragmatic hernia without obstruction or gangrene CPT copyright 2017 [employer]. All rights reserved. The codes documented in this report are preliminary and upon bridal service sales and management review may be revised to meet current compliance requirements. Guillermo Butts MD 02/19/2022 7:06:22 AM This report has been signed electronically. Number of Addenda: 0 Note Initiated On: 02/19/2022 6:17 AM
--- NOTE | 2022-02-19 07:07 | OP.CCLET_ITS ---
02/19/2022 Tyler Hylton MD [address] [place] [address] Re : Upper GI endoscopy procedure for Bri Blanche Dear Dr. Hylton This procedure was performed on Saturday, February 19, 2022. My impressions and recommendations are as follows: Impressions : - LA Grade A reflux esophagitis. Biopsied. Very mild - Small hiatal hernia. - Normal stomach. Biopsied. - Normal examined duodenum. Recommendations : - Await pathology results. - Repeat upper endoscopy. - Telephone my office for pathology results in 1 week. - Use Prilosec (omeprazole) 20 mg PO daily OTC as needed - Continue present medications. My findings are described in the full procedure note, which is enclosed. If I can be of further assistance, please feel free to contact me at Doctor phone number(s): Work: . Sincerely, Guillermo Butts MD 02/19/2022 7:06:22 AM This report has been signed electronically.
[2022-02-19 07:10] VITALS: BP 114/71; BP 88/66; PULSE 70; RESP 18; O2SAT 99
--- NOTE | 2022-02-19 07:12 | OP.COLON_ITS ---
Patient Name: Bri Mancia Procedure Date: 02/19/2022 6:40 AM Date of : 1960 Age: 61 Procedure: Colonoscopy Indications: Cologuard positive Providers: Guillermo Butts MD Medicines: See the Anesthesia note for documentation of the administered medications Patient Profile: Last Colonoscopy: none. The patient's first colonoscopy is today. Complications: No immediate complications. Procedure: Pre-Anesthesia Assessment: - Prior to the procedure, a History and Physical was performed, and patient medications and allergies were reviewed. The patient's tolerance of previous anesthesia was also reviewed. The risks and benefits of the procedure and the sedation options and risks were discussed with the patient. All questions were answered, and informed consent was obtained. Prior Anticoagulants: The patient has taken no previous anticoagulant or antiplatelet agents. ASA Grade Assessment: II - A patient with mild systemic disease. After reviewing the risks and benefits, the patient was deemed in satisfactory condition to undergo the procedure. After I obtained informed consent, the scope was passed under direct vision. Throughout the procedure, the patient's blood pressure, pulse, and oxygen saturations were monitored continuously. The colonoscope was introduced through the anus and advanced to the cecum, identified by appendiceal orifice and ileocecal valve. The colonoscopy was performed without difficulty. The patient tolerated the procedure well. The quality of the bowel preparation was good. The ileocecal valve and the appendiceal orifice were photographed. Scope In: 6:42:20 AM Scope Withdrawal Time 0 hours 9 minutes 9 seconds Scope Out: 7:00:30 AM Total Procedure Duration Time 0 hours 18 minutes 10 seconds Findings: Hemorrhoids were found on perianal exam. Multiple diverticula were found in the sigmoid colon and descending colon. A single medium-sized localized angioectasia with bleeding on contact was found in the cecum. Coagulation for hemostasis using heater probe was successful. Estimated blood loss was minimal. Impression: - Hemorrhoids found on perianal exam. - Diverticulosis in the sigmoid colon and in the descending colon. - A single colonic angioectasia. Treated with a heater probe. - No specimens collected. Recommendation: - Discharge patient to home. - Resume previous diet. - Continue present medications. - Repeat colonoscopy in 10 years for screening purposes. I suspect the AVM of the cecum was likely source of Cologuard positive result Procedure Code(s): --- Professional --- 40691, Colonoscopy, flexible; with control of bleeding, any method Diagnosis Code(s): --- Professional --- K64.9, Unspecified hemorrhoids K55.20, Angiodysplasia of colon without hemorrhage K57.30, Diverticulosis of large intestine without perforation or abscess without bleeding CPT copyright 2017 [employer]. All rights reserved. The codes documented in this report are preliminary and upon service manager review may be revised to meet current compliance requirements. Guillermo Butts MD 02/19/2022 7:12:04 AM This report has been signed electronically. Number of Addenda: 0 Note Initiated On: 02/19/2022 6:40 AM
[2022-02-19 07:13] VITALS: BP 110/65; BP 114/71; PULSE 71; RESP 18; O2SAT 100
--- NOTE | 2022-02-19 07:13 | OP.CCLET_ITS ---
02/19/2022 Tyler Hylton MD [address] [place] [address] Re : Colonoscopy procedure for Bri Mancia Dear Dr. Hylton This procedure was performed on Saturday, February 19, 2022. My impressions and recommendations are as follows: Impressions : - Hemorrhoids found on perianal exam. - Diverticulosis in the sigmoid colon and in the descending colon. - A single colonic angioectasia. Treated with a heater probe. - No specimens collected. Recommendations : - Discharge patient to home. - Resume previous diet. - Continue present medications. - Repeat colonoscopy in 10 years for screening purposes. I suspect the AVM of the cecum was likely source of Cologuard positive result My findings are described in the full procedure note, which is enclosed. If I can be of further assistance, please feel free to contact me at Doctor phone number(s): Work: . Sincerely, Guillermo Butts MD 02/19/2022 7:12:04 AM This report has been signed electronically.
[2022-02-19 07:18] VITALS: BP 108/66; BP 114/71; PULSE 72; RESP 18; TEMP 36.3
[2022-02-19 07:44] VITALS: BP 114/71
== END 2022-02-19 07:50 | disposition home or self-care (01) ==
LOC: EN 05:26 → AC 05:29
PROVIDERS: PCP Family Medicine Geriatric Medicine; Referring Provider Family Medicine Geriatric Medicine; Visit Provider Surgery
PROC: 0DJD8ZZ Inspection of Lower Intestinal Tract, Via Natural or Artificial Opening Endoscopic (ICD-10-PCS; CPT 45378; principal; 2022-02-19 06:25)
DX: K29.50 Unspecified chronic gastritis without bleeding (principal); I48.91 Unspecified atrial fibrillation; K44.9 Diaphragmatic hernia without obstruction or gangrene; K21.00 Gastro-esophageal reflux disease with esophagitis, without bleeding; K64.9 Unspecified hemorrhoids; K57.30 Diverticulosis of large intestine without perforation or abscess without bleeding; K55.20 Angiodysplasia of colon without hemorrhage; E03.9 Hypothyroidism, unspecified; Z86.74 Personal history of sudden cardiac arrest
CPT/HCPCS: 45382; 43239; 88305; 88313; 88342; J7120; J2405

== ENCOUNTER → 2022-05-24 | Outpatient (CLI) | payer BC, SELFPAY ==
--- NOTE | 2022-05-24 12:49 | ECHOD_ITS ---
Reason For Study: Valve Eval Procedure This was a 2D Doppler, Color Flow transthoracic echocardiogram. Exam performed in department. Left Ventricle Normal LV size. Left ventricular systolic function is lower limits of normal. The estimated ejection fraction is 50 %. There are regional wall motion abnormalities as specified. Kane : Hypokinetic. Right Ventricle Normal RV size. Normal systolic function. Atria The left atrium is mildly enlarged. Normal right atrium. Mitral Valve Moderate (2+) eccentric mitral valve insufficiency. An annuloplasty ring is noted in the mitral position. Status post mitral valve repair with annuloplasty ring. Tricuspid Valve Normal tricuspid valve. Mild (1+) tricuspid valve insufficiency. Aortic Valve Normal aortic valve. Trisinus/trileaflet aortic valve. Mild (1+) eccentric aortic valve insufficiency. Pulmonic Valve Normal pulmonic valve. Great Vessels Normal aortic root. The pulmonary artery is normal size. Normal inferior vena cava. Pericardium/Pleural No pericardial effusion. MMode/2D Measurements & Calculations LVIDd: 4.9 cm IVSd: 1.0 cm Ao root diam: 3.2 cm LVIDs: 3.8 cm LVPWd: 0.94 cm LA dimension: 5.2 cm RVDd: 3.2 cm FS: 23.0 % LAV(MOD-bp): 90.0 ml LVAd ap4: 28.2 cm2 SV(MOD-sp4): 44.5 ml LAV(MOD-bp) Indexed: 51.0 ml/m2 LVLd ap4: 7.1 cm LAV(MOD-sp2): 88.2 ml EDV(MOD-sp4): 92.5 ml LAV(MOD-sp4): 85.9 ml EDV(sp4-el): 95.3 ml LVAs ap4: 19.8 cm2 LVLs ap4: 6.9 cm ESV(MOD-sp4): 48.0 ml ESV(sp4-el): 48.4 ml EF(MOD-sp4): 48.1 % EF(sp4-el): 49.2 % SV(sp4-el): 46.8 ml LA A4 area: 24.2 cm2 RA A4 area: 14.8 cm2 Time Measurements MV dec time: 0.21 sec Doppler Measurements & Calculations MV E max fabian: 94.8 cm/sec Lat Peak E' Fabian: 5.9 cm/sec Med Peak E' Fabian: 5.9 cm/sec MV A max fabian: 91.4 cm/sec E/E' lat: 16.1 E/E' med: 16.1 MV E/A: 1.0 MV V2 max: 98.7 cm/sec MV P1/2t max fabian: 97.6 cm/sec Ao V2 max: 104.3 cm/sec MV max P.9 mmHg MV P1/2t: 67.5 msec Ao max P.3 mmHg MV V2 mean: 65.4 cm/sec Ao V2 mean: 78.4 cm/sec MV mean P.9 mmHg MV dec slope: 423.3 cm/sec2 Ao mean P.7 mmHg MV V2 VTI: 25.7 cm MVA(P1/2t): 3.3 cm2 Ao V2 VTI: 21.9 cm LV V1 max: 80.5 cm/sec MR max fabian: 581.4 cm/sec PA V2 max: 57.3 cm/sec LV V1 max P.6 mmHg MR max P.2 mmHg LV V1 mean P.6 mmHg MR mean fabian: 453.2 cm/sec LV V1 mean: 60.0 cm/sec MR mean P.2 mmHg LV V1 VTI: 16.8 cm MR VTI: 193.6 cm TR max fabian: 199.2 cm/sec TR max P.7 mmHg ECHO/Echo Complete Interpretation Summary Status post mitral valve repair with annuloplasty ring. Normal LV size. Left ventricular systolic function is lower limits of normal. The estimated ejection fraction is 50 %. Kane : Hypokinetic. Moderate (2+) eccentric mitral valve insufficiency. The global longitudinal strain is severely abnormal. The global longitudinal st rain = -9.8% (abnormal). Ordering Physician: Pramod Loya Referring Physician: Tyler Hylton Chi Performed By: Deepak Rabago RCS
== END | disposition home or self-care (01) ==
PROVIDERS: PCP Family Medicine Geriatric Medicine; Referring Provider Internal Medicine Cardiovascular Disease; Visit Provider Internal Medicine Cardiovascular Disease
DX: Z98.890 Other specified postprocedural states (principal)
CPT/HCPCS: 93306